=== PATIENT | male | born 1950 | race Caucasian/White ===

== ENCOUNTER 2017-08-16 10:52 | Emergency (ER) | payer MEDICARE ==
[~2017-08-16] VITALS: Ht 177.8 cm; Wt 104.3 kg
[~2017-08-16 10:52] MED LIST: HYDR1TAB PO; NF-ESOM40C PO
--- OUTSIDE RECORDS SUMMARY | 2017-08-16 10:59 | XMS REPORT ---
Author Author ROSIO MCCORMICK Organization [employer] Address Unknown Phone Unavailable Care Team Providers Care Telephone Operators Supervisor Name Role Phone ROSIO MCCORMICK CP Unavailable Allergies, Adverse Reactions, Alerts Substance Reaction Event Type N.K.D.A. Info Not Available Non Drug Allergy Problems Problem Type Condition Code Onset Dates Condition Status Problem Tobacco abuse Z72.0 Active Problem History of esophageal stricture Z87.19 Active Problem Bronchitis J40 Active Problem Gastroesophageal reflux disease with esophagitis K21.0 Active Assessment Abdominal pain, left lower quadrant R10.32 Active Medications Medication Code System Code Instructions Start Date End Date Status Dosage Cipro [facility] [address]-48 500 MG Orally every 12 hrs Apr 18, 2016 Apr 28, 2016 1 tablet Aspir-81 [facility] [address]-88 81 MG Orally Once a day 1 tablet Metronidazole [facility] [address]-66 500 MG Orally every 8 hrs Apr 18, 2016 Apr 28, 2016 1 tablet Procedures Procedure Coding System Code Date VENIPUNCT, ROUTINE* CPT-4 56146 Apr 18, 2016 Office Visit, Est Pt., Level 3 CPT-4 77014 Apr 18, 2016 [facility] NOBLL Apr 18, 2016 Vital Signs Date/Time: Apr 18, 2016 Cardiac Monitoring Heart Rate 88 bpm Weight 233.2 lbs Height 70 in BMI 33.46 Index Blood Pressure Diastolic 80 mmHg Blood Pressure Systolic 150 mmHg Results No Known Results Summary Purpose [employer]ClinicalWorks Submission
--- OUTSIDE RECORDS SUMMARY | 2017-08-16 10:59 | XMS REPORT ---
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 Info Not Available Non Drug Allergy Problems Problem Type Condition Code Onset Dates Condition Status Assessment Gastroesophageal reflux disease with esophagitis K21.0 Active Assessment Tobacco abuse Z72.0 Active Assessment History of esophageal stricture Z87.19 Active Problem Tobacco abuse Z72.0 Active Problem History of esophageal stricture Z87.19 Active Problem Bronchitis J40 Active Assessment SOB (shortness of breath) R06.02 Active Assessment Coughing up blood R04.2 Active Problem Gastroesophageal reflux disease with esophagitis K21.0 Active Assessment Bronchitis J40 Active Medications Medication Code System Code Instructions Start Date End Date Status Dosage Aspir-81 [facility] [address]-29 81 MG Orally Once a day [address] [facility] [address]-26 40 MG Orally Once a day [address] [facility] [address]-02 250 MG Orally Once a day Jul 21, 2015 Jul 26, 2015 2 tablets on the first day, then 1 tablet daily for 4 days Procedures Procedure Coding System Code Date CHEST X-RAY CPT-4 51655 Jul 21, 2015 [facility] VISIT NEW PATIENT CPT-4 G0466 Jul 21, 2015 MEASURE BLOOD OXYGEN LEVEL CPT-4 13924 Jul 21, 2015 Office Visit, New Pt., Level 3 CPT-4 49660 Jul 21, 2015 Vital Signs Date/Time: Jul 21, 2015 Temperature 98.1 F Weight 230 lbs Height 70 in BMI 33.00 Index Oximetry 96 % Cardiac Monitoring Heart Rate 67 bpm Results No Known Results Summary Purpose eClinicalWorks Submission
--- OUTSIDE RECORDS SUMMARY | 2017-08-16 11:00 | XMS REPORT | Continuity of Care Document ---
Author Author [facility] Organization [facility] Address Unknown Phone Unavailable Allergies Active Description Code Type Severity Reaction Onset Reported/Identified Relationship to Patient Clinical Status Yes No Known Drug Allergies [id number] Drug Allergy Unknown N/ A 03/11/2011 Medications 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/2014 DONATO REAL TRAINS DISPATCHER 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 Ot 935.1 04/02/2014 DONATO REAL TRAINS DISPATCHER SUPERVISOR Ot E000.8 04/02/2014 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 TRAINS DISPATCHER SUPERVISOR Ot E915 01/07/2015 CHRIS BLANCHARD DO Ot 530.10 01/07/2015 CHRIS BLANCHARD DO Ot 530.3 01/07/2015 CHRIS BLANCHARD DO Ot 530.9 01/11/2015 Ot 813.42 01/11/2015 Ot E000.8 01/11/2015 Ot E029.9 01/11/2015 Ot E849.8 01/11/2015 Ot E884.9 01/11/2015 Ot V72.83 01/11/2015 Ot V74.8 01/11/2015 CHRIS BLANCHARD DO Ot 553.3 01/11/2015 CHRIS BLANCHARD DO Ot 787.23 01/11/2015 CHRIS BLANCHARD DO Ot V72.84 01/14/2015 Ot 813.42 01/14/2015 Ot E000.8 01/14/2015 Ot E029.9 01/14/2015 Ot E849.8 01/14/2015 Ot E884.9 01/14/2015 Ot V72.83 01/14/2015 Ot V74.8 01/14/2015 BLANCHARD DO, CHRIS D Ot 553.3 01/14/2015 BLANCHARD DO, CHRIS D Ot 787.23 01/14/2015 BLANCHARD DO, CHRIS D Ot V72.84 01/14/2015 BLANCHARD DO, CHRIS D Ot 553.3 01/14/2015 BLANCHARD DO, CHRIS D Ot 787.23 02/05/2015 BLANCHARD DO, CHRIS D Ot 553.3 02/05/2015 BLANCHARD DO, CHRIS D Ot 787.23 02/09/2015 BLANCHARD DO, CHRIS D Ot 553.3 02/09/2015 BLANCHARD DO, CHRIS D Ot 787.23 02/16/2015 BLANCHARD DO, CHRIS D Ot 553.3 02/16/2015 BLANCHARD DO, CHRIS D Ot 787.23 Procedures Results Encounters ACCT No. Visit Date/Time Discharge Status Pt. Type Provider Facility Loc./Unit Complaint [id number] 01/07/2015 11:53:00 2014 15:45:00 DIS Outpatient CHRIS BLANCHARD DO D [facility] [id number] 01/06/2015 05:53:00 2014 23:59:59 CLS Outpatient CHRIS BLANCHARD DO D [facility] PREOP [id number] 12/08/2014 07:35:00 2014 23:59:59 CLS Outpatient BLANCHARD DOCHRIS D [facility] RAD [id number] 04/02/2014 17:00:00 2013 18:05:00 DIS Emergency DONATO REAL APRN [facility] ER [id number] 03/15/2011 05:37:00 Document Registration [id number] 03/13/2011 14:04:00 Document Registration [id number] 03/11/2011 13:36:00 Document Registration
--- OUTSIDE RECORDS SUMMARY | 2017-08-16 11:00 | XMS REPORT ---
Author Author SAMIR ESTRADA [facility] eClinicalWorks Address Unknown Phone Unavailable Care Team Providers Care Rn Utilization Management Um Name Role Phone SAMIR ESTRADA CP Unavailable Allergies, Adverse Reactions, Alerts Substance Reaction Event Type N.K.D.A. Info Not Available Non Drug Allergy Problems Problem Type Condition Code Onset Dates Condition Status Assessment Routine adult health maintenance Z00.00 Active Problem Bronchitis J40 Active Problem Tobacco abuse Z72.0 Active Problem Family history of heart disease Z82.49 Active Assessment Gastroesophageal reflux disease with esophagitis K21.0 Active Assessment Family history of heart disease Z82.49 Active Problem History of esophageal stricture Z87.19 Active Problem Gastroesophageal reflux disease with esophagitis K21.0 Active Medications Medication Code System Code Instructions Start Date End Date Status Dosage Metronidazole [facility] [address]-15 500 MG Orally every 8 hrs Apr 18, 2016 Apr 28, 2016 1 tablet Cipro [facility] [address]-02 500 MG Orally every 12 hrs Apr 18, 2016 Apr 28, 2016 1 tablet Procedures Procedure Coding System Code Date Office Visit, Est Pt., Level 3 CPT-4 47910 Apr 25, 2016 [facility] VISIT ESTABLISHED PATIENT CPT-4 G0467 Apr 25, 2016 Vital Signs Date/Time: Apr 25, 2016 Cardiac Monitoring Heart Rate 78 bpm Weight 236 lbs Height 70 in BMI 33.86 Index Blood Pressure Diastolic 78 mmHg Blood Pressure Systolic 140 mmHg Results No Known Results Summary Purpose eClinicalWorks Submission
[2017-08-16] MEDS ORDERED: IOHEXOL 350 MG/ML 100 ML (OMNIPAQUE 350) VIAL IV ONE (11:15)
[2017-08-16] MEDS ORDERED: NS 100 ML (IVPB) BAG IV ONE (11:15)
[2017-08-16 11:19] LABS: BASOPHILS # (AUTO) 0.1 10^3/uL (0.0-0.1); BASOPHILS % (AUTO) 1 % (0-10); EOSINOPHILS # (AUTO) 0.3 10^3/uL (0.0-0.3); EOSINOPHILS % (AUTO) 2 % (0-10); LYMPHOCYTES # (AUTO) 5.2 X 10^3 (1.0-4.0); LYMPHOCYTES % (AUTO) 50 % (12-44); MEAN CORPUSCULAR HEMOGLOBIN 33 PG (25-34); MEAN CORPUSCULAR HGB CONC 36 G/DL (32-36); MEAN CORPUSCULAR VOLUME 91 FL (80-99); MEAN PLATELET VOLUME 10.8 FL (7.4-10.4); MONOCYTES # (AUTO) 0.7 X 10^3 (0.0-1.0); MONOCYTES % (AUTO) 7 % (0-12); NEUTROPHILS # (AUTO) 4.1 X 10^3 (1.8-7.8); NEUTROPHILS % (AUTO) 40 % (42-75); PLATELET COUNT 241 10^3/uL (130-400); RED BLOOD COUNT 4.95 10^6/uL (4.35-5.85); RED CELL DISTRIBUTION WIDTH 12.7 % (10.0-14.5); WHITE BLOOD COUNT 10.3 10^3/uL (4.3-11.0)
--- NOTE | 2017-08-16 11:19 | ED Trauma-Multisystem ---
General Stated Complaint: RT SHOULDER PAIN-FELL FROM TREE Source of Information: Patient Exam Limitations: No Limitations History of Present Illness Time Seen by Provider: 11:05 Initial Comments The patient presents to the emergency room reporting having fallen from a tree. He complains of right shoulder pain and to a lesser degree right sided pain. He walked into the emergency room. He would estimate the height of the fall 20 feet. There was no loss of consciousness. Occurred: Just Prior to Arrival Pain/Injury Location: Chest, Upper Extremity (right shoulder) Method of Injury: Fall Allergies and Home Medications Allergies Coded Allergies: No Known Drug Allergies (Unverified , 03/11/11) Constitutional: see HPI Eyes: No Symptoms Reported Ears: Other (deaf) Nose: No Symptoms Reported Mouth: No Symptoms Reported Throat: No Symptoms to Report Respiratory: no symptoms reported Cardiovascular: No Symptoms Reported Gastrointestinal: no symptoms reported Genitourinary: no symptoms reported Musculoskeletal: back pain, joint pain (right shoulder), neck pain Skin: no symptoms reported Psychiatric/Neurological: No Symptoms Reported Past Aiwpwbr-Fdrmbx-Fxvvlo Hx Reproductive System Hx Reproductive Disorders: No Sexually Transmitted Disease: No Physical Exam General Appearance: Moderate Distress Head: No Evidence of Injury Eyes: Bilateral Eye Normal Inspection Ears, Nose, Throat: Decreased Hearing Neck: Normal Inspection Cardiovascular: Regular Rate, Rhythm, No Edema, No Gallop, No JVD, No Murmur, Normal Peripheral Pulses Respiratory: Other (chest tender to compression but no ecchymoses are noted) Gastrointestinal: Normal Bowel Sounds, No Organomegaly, No Pulsatile Mass, Non Tender, Soft Back: Normal Inspection Extremity: Normal Capillary Refill, Normal Inspection, Normal Range of Motion, Non Tender, No Calf Tenderness, No Pedal Edema Neurologic/Psychiatric: Alert, Oriented x3, No Motor/Sensory Deficits, Normal Mood/Affect Skin: Normal Color, Warm/Dry Lymphatic: No Adenopathy [place] Coma Score Best Eye Response (Leisa): (4) Open Spontaneously Best Verbal Response ([place]): (5) Oriented Best Motor Response ([place]isa): (6) Obeys Commands Progress/Results/Core Measures Results/Orders Lab Results Laboratory Tests Test 08/16/17 11:14 Range/Units White Blood Count 10.3 4.3-11.0 10^3/uL Red Blood Count 4.95 4.35-5.85 10^6/uL Hemoglobin 16.1 13.3-17.7 G/DL Hematocrit 45 40-54 % Mean Corpuscular Volume 91 80-99 FL Mean Corpuscular Hemoglobin 33 25-34 PG Mean Corpuscular Hemoglobin Concent 36 32-36 G/DL Red Cell Distribution Width 12.7 10.0-14.5 % Platelet Count 241 130-400 10^3/uL Mean Platelet Volume 10.8 H 7.4-10.4 FL Neutrophils (%) (Auto) 40 L 42-75 % Lymphocytes (%) (Auto) 50 H 12-44 % Monocytes (%) (Auto) 7 0-12 % Eosinophils (%) (Auto) 2 0-10 % Basophils (%) (Auto) 1 0-10 % Neutrophils # (Auto) 4.1 1.8-7.8 X 10^3 Lymphocytes # (Auto) 5.2 H 1.0-4.0 X 10^3 Monocytes # (Auto) 0.7 0.0-1.0 X 10^3 Eosinophils # (Auto) 0.3 0.0-0.3 10^3/uL Basophils # (Auto) 0.1 0.0-0.1 10^3/uL Sodium Level 138 135-145 MMOL/L Potassium Level 3.5 L 3.6-5.0 MMOL/L Chloride Level 105 98-107 MMOL/L Carbon Dioxide Level 21 21-32 MMOL/L Anion Gap 12 5-14 MMOL/L Blood Urea Nitrogen 9 7-18 MG/DL Creatinine 0.96 0.60-1.30 MG/DL Estimat Glomerular Filtration Rate > 60 BUN/Creatinine Ratio 9 Glucose Level 144 H 70-105 MG/DL Calcium Level 9.0 8.5-10.1 MG/DL Total Bilirubin 0.8 0.1-1.0 MG/DL Aspartate Amino Transf (AST/SGOT) 31 5-34 U/L Alanine Aminotransferase (ALT/SGPT) 28 0-55 U/L Alkaline Phosphatase 57 40-136 U/L Total Protein 7.2 6.4-8.2 GM/DL Albumin 3.9 3.2-4.5 GM/DL My Orders Orders - NAEEM MIN MD Chest 1 View, Ap/Pa Only (08/16/17 10:56) Cbc With Automated Diff (08/16/17 10:56) Comprehensive Metabolic Panel (08/16/17 10:56) Ua Culture If Indicated (08/16/17 10:56) Iohexol Injection (Omnipaque 350 Mg/Ml 1 (08/16/17 11:15) Ns (Ivpb) (Sodium Chloride 0.9% Ivpb Bag (08/16/17 11:15) Pharmacy Communication (Pharmacy Communi (08/16/17 11:14) Ondansetron Injection (Zofran Injectio (08/16/17 11:32) Hydrocodone/Apap 10/325 Tablet (Lortab 1 (08/16/17 11:58) Medications Given in ED Current Medications Medications Dose Ordered Sig/Ki Route Start Time Stop Time Status Last Admin Dose Admin Iohexol 100 ml ONCE ONCE IV 08/16/17 11:15 08/16/17 11:17 DC 08/16/17 11:20 100 ML Ondansetron HCl 4 mg STK-MED ONCE .ROUTE 08/16/17 11:32 08/16/17 11:42 DC 08/16/17 11:44 8 MG Sodium Chloride 100 ml ONCE ONCE IV 08/16/17 11:15 08/16/17 11:17 DC 08/16/17 11:20 80 ML Departure Communication (Admissions) Progress Notes X-ray was returned negative for fracture or dislocation. C-collar removed 1155. Patient was also examined by Dr. Drew the trauma surgeon of the day. Impression Impression: Primary Impression: Fall from height of greater than 3 feet Additional Impression: multiple contusions Disposition: HOME, SELF-CARE Condition: Stable/Unchanged Departure-Patient Inst. Decision time for Depature: 12:01 Referrals: NO,LOCAL PHYSICIAN (PCP) Primary Care Physician Add. Discharge Instructions: Rest. Ice packs to areas of greatest discomfort. Pain meds as required for pain relief. Scripts Hydrocodone/Acetaminophen ([place] 7.5-325 Tablet) 1 Each Tablet 1 EACH PO every 4 hours, #20 TAB Prov: NAEEM MIN MD 08/16/17 NAEEM MIN MD Aug 16, 2017 11:19
--- NOTE | 2017-08-16 11:26 | Diagnostic Imaging Report ---
AP view of the pelvis. INDICATION: Injury. FINDINGS: No fracture, dislocation, or radiopaque foreign body seen. IMPRESSION: No fracture seen. Dictated by: Dictated on workstation # [id number]
--- NOTE | 2017-08-16 11:27 | Diagnostic Imaging Report ---
Supine portable AP view of the chest. INDICATION: Fall. The heart size is mildly enlarged. No definite focal infiltrate. No effusion or pneumothorax. The mediastinum and kevin appear unremarkable. IMPRESSION: Cardiomegaly. Dictated by: Dictated on workstation # [id number]
[2017-08-16] MEDS ORDERED: ONDANSETRON 4 MG/2 ML (SDV) Z0FRAN ONE (11:32)
[2017-08-16 11:37] LABS: ALANINE AMINOTRANSFERASE 28 U/L (0-55); ALBUMIN 3.9 GM/DL (3.2-4.5); ANION GAP 12 MMOL/L (5-14); ASPARTATE AMINO TRANSFERASE 31 U/L (5-34); BILIRUBIN,TOTAL 0.8 MG/DL (0.1-1.0); BLOOD UREA NITROGEN 9 MG/DL (7-18); BUN/CREATININE RATIO 9; CARBON DIOXIDE 21 MMOL/L (21-32); CHLORIDE 105 MMOL/L (98-107); CREATININE SERUM 0.96 MG/DL (0.60-1.30); GFR ESTIMATED > 60; GLUCOSE 144 MG/DL (70-105); POTASSIUM 3.5 MMOL/L (3.6-5.0); SODIUM 138 MMOL/L (135-145); TOTAL PROTEIN 7.2 GM/DL (6.4-8.2)
--- NOTE | 2017-08-16 11:45 | Diagnostic Imaging Report ---
PROCEDURE: CT head and CT cervical spine without contrast. TECHNIQUE: Multiple contiguous axial images were obtained through the brain and cervical spine without the use of intravenous contrast. Sagittal and coronal reformations through the cervical spine were then performed. INDICATION: Trauma, fall. FINDINGS: CT head: There is no intracranial hemorrhage, edema, or mass effect. The brain parenchyma demonstrates mild periventricular hypodensities compatible with chronic microvascular ischemic changes. No hydrocephalus. No extra-axial fluid collection is seen. The calvarium, and orbits appear grossly unremarkable. There is a nonspecific partial opacification of the ethmoid air cells seen. The rest of the paranasal sinuses appear grossly unremarkable. CT cervical spine: There is old anterior and posterior fusion hardware seen with fusion wires seen through the posterior elements involving levels C4 through T1 with posterior and anterior osseous fusion seen. The fusion material including an area of graft or prosthesis suggested that has pockets of air unchanged from 2014 exam. The alignment of the posterior spinal line is satisfactory. Small posterior osteophytes at C2-C3 and C3-C4 are seen. There is minimal rotation of C1 over C2 without widening of the predental space, likely positional. No fracture is seen. IMPRESSION: CT head: No intracranial hemorrhage. CT cervical spine: Chronic changes related to fusion surgery with osseous fusion of the vertebral bodies and facet joints from C4 to T1 levels. Slight rotation of C1 over C2 is perhaps positional with no fracture seen. Dictated by: Dictated on workstation # [id number]
--- NOTE | 2017-08-16 11:49 | Consultation ---
History of Present Illness History of Present Illness Patient Consulted On(geena/time) 08/16/17 11:44 Date Seen by Provider: Aug 16, 2017 Time Seen by Provider: 11:03 History of Present Illness Type I Trauma activation; pt was hunting and reports falling 20 feet out of tree stand. Pt walked into the ED complaining of right shoulder, right sided pain and right hip pain. He denies LOC. Rates the pain as 8 out of 10 on a 1-10 scale. States any movement makes the pain worse and nothing seems to make it better. Did get some relief with pain meds. Pt reports some nausea, no vomiting. Has a history of neck surgery and denies neck pain at this time. Denies abdominal pain. Allergies and Home Medications Allergies Coded Allergies: No Known Drug Allergies (Unverified , 03/11/11) Past Ytooiux-Gyrsyk-Sqiobs Hx Patient Social History Alcohol Use: Occasionally Uses Recreational Drug Use: No Smoking Status: Former Smoker (quit when he was 34) Recent Foreign Travel: No Contact w/Someone Who Travel: No Recent Infectious Disease Expo: No Recent Hopitalizations: No Immunizations Up To Date Tetanus Booster (TDap): Unknown Seasonal Allergies Seasonal Allergies: No Surgeries Surgeries: Orthopedic (neck, back and left wrist) Respiratory History of Respiratory Disorde: No Cardiovascular History of Cardiac Disorders: No Neurological History of Neurological Disord: No Reproductive System Hx Reproductive Disorders: No Sexually Transmitted Disease: No Genitourinary History of Genitourinary Disor: No Gastrointestinal History of Gastrointestinal Di: No Musculoskeletal History of Musculoskeletal Dis: No Endocrine History of Endocrine Disorders: No HEENT Hearing Impairment: Denies Cancer History of Cancer: No Psychosocial History of Psychiatric Problem: No Integumentary History of Skin or Integumenta: No Blood Transfusions History of Blood Disorders: No Family Medical History Significant Family History: Diabetes (Pt denies either parent had DM), Other Conditions/Hx (Pt denies either parent had HTN, no strokes) Review of Systems-General Constitutional: No chills, No diaphoresis, No dizziness EENTM: No blurred vision, No mouth swelling, No epistaxis, No throat swelling Respiratory: No cough, No dyspnea on exertion Cardiovascular: No chest pain, No edema, No Hx of Intervention Gastrointestinal: No abdominal pain, No constipation, No diarrhea, No hematemesis, No jaundice Genitourinary: No dysuria, frequency, No hematuria, hesitancy Musculoskeletal: back pain, joint pain, joint swelling, muscle pain, muscle stiffness, muscle cramps Skin: No change in color, No change in hair/nails Psychiatric/Neurological: Denies Anxiety, Denies Depressed, Denies Headache, Denies Paresthesia, Denies Seizure Other pt denies any abnormal bruising or bleeding. No chronic illnesses Physical Exam-General Problems Physical Exam Vital Signs Capillary Refill : General Appearance: WD/WN, moderate distress Eyes: Bilateral Eye PERRL, Bilateral Eye EOMI HEENT: pharynx normal, No scleral icterus (R), No scleral icterus (L), No pale conjunctivae (R), No pale conjunctivae (L) Neck: non-tender, supple, No normal inspection, No thyromegaly Respiratory: lungs clear, normal breath sounds, no respiratory distress, no accessory muscle use, other (chest tender on right) Cardiovascular: regular rate, rhythm, no edema, no murmur Gastrointestinal: normal bowel sounds, soft, no organomegaly, tenderness ( diffusely), hernia (small umbilical) Rectal: deferred Back: no CVA tenderness, no vertebral tenderness Extremities: no pedal edema, no calf tenderness, normal capillary refill, other (complains of right shoulder pain, doesn't really want to move it) 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, no motor/sensory deficits, alert, normal mood/affect, oriented x 3 Skin: normal color, warm/dry Lymphatic: no adenopathy (neck, axilla or groin) Data Review Labs Laboratory Tests 08/16/17 11:14: White Blood Count 10.3, Red Blood Count 4.95, Hemoglobin 16.1, Hematocrit 45, Mean Corpuscular Volume 91, Mean Corpuscular Hemoglobin 33, Mean Corpuscular Hemoglobin Concent 36, Red Cell Distribution Width 12.7, Platelet Count 241, Mean Platelet Volume 10.8H, Neutrophils (%) (Auto) 40L, Lymphocytes (%) (Auto) 50H, Monocytes (%) (Auto) 7, Eosinophils (%) (Auto) 2, Basophils (%) (Auto) 1, Neutrophils # (Auto) 4.1, Lymphocytes # (Auto) 5.2H, Monocytes # (Auto) 0.7, Eosinophils # (Auto) 0.3, Basophils # (Auto) 0.1, Sodium Level 138, Potassium Level 3.5L, Chloride Level 105, Carbon Dioxide Level 21, Anion Gap 12, Blood Urea Nitrogen 9, Creatinine 0.96, Estimat Glomerular Filtration Rate > 60, BUN/ Creatinine Ratio 9, Glucose Level 144H, Calcium Level 9.0, Total Bilirubin 0.8, Aspartate Amino Transf (AST/SGOT) 31, Alanine Aminotransferase (ALT/SGPT) 28, Alkaline Phosphatase 57, Total Protein 7.2, Albumin 3.9 Assessment/Plan Assessment/Plan Assessment/Plan Type I Trauma Activation; 20 foot fall Right Shoulder Pain Right hip pain Fortunately for pt it is looking like there is nothing broken. Will await final radiologist reading. Pt will be sore for a while, should use ice and heat ; add in NSAIDS. He can try hot tub as well. Will need to make sure he is taking deep breaths and moving around; can't lay on couch for next 2 weeks. Unfortunately there is not much we can do for the pain. Follow up with primary care doctor. JE WOODALL DO Aug 16, 2017 11:49
[2017-08-16] MEDS ORDERED: HYDROcodone/APAP 10 MG/325 MG (LORTAB) TAB PO ONE (11:58)
--- NOTE | 2017-08-16 12:00 | Diagnostic Imaging Report ---
PROCEDURE: CT chest, abdomen, and pelvis with contrast. TECHNIQUE: Multiple contiguous axial images were obtained through the chest, abdomen, and pelvis after the administration of intravenous contrast. INDICATION: Fall. FINDINGS: CT chest: The lungs demonstrate no significant consolidation, contusion, or mass. There is minimal atelectasis in the lung bases. Calcified granuloma in the left perihilar region measuring 3 mm is seen. Minimal emphysema changes in the lung apices are noted. There is no pleural or pericardial effusion or hemorrhage. There is fluid density mildly distending the mid/ distal esophagus. This may relate to gastroesophageal reflux. The thoracic aorta is normal in caliber and contour. No contrast extravasation or hemorrhage in the mediastinum is seen. No mediastinal, or axillary, or hilar lymphadenopathy seen. The osseous structures appear grossly unremarkable. CT abdomen and pelvis: The liver demonstrates a 0.8-cm hypodense lesion in the inferior aspect of the right hepatic lobe, likely a cyst. Cholecystectomy clips are seen. The spleen, the pancreas, and the adrenal glands demonstrate no evidence of hemorrhage. No peritoneal or retroperitoneal hemorrhage seen. The abdominal aorta is normal in caliber. The kidneys have symmetric enhancement and contrast excretion. There are multiple cysts seen in the right kidney up to 2.1 cm in size. There is a tiny fat-containing umbilical hernia. The appendix is normal. There is multiple colonic diverticulosis. No diverticulitis. The urinary bladder appears unremarkable. The prostate is at the upper limits of normal in size at 4.7 cm in transverse dimension. The osseous structures demonstrate mild degenerative changes in the lumbar spine. There is also osseous fusion of the SI joints. IMPRESSION: CT chest: Fluid distention of the mid and distal segments of the esophagus probably related to gastroesophageal reflux. No significant injury is evident. CT abdomen and pelvis: 1. No solid organ injury or hematoma is seen. 2. Tiny fat-containing umbilical hernia. 3. Diverticulosis. No evidence of diverticulitis. Dictated by: Dictated on workstation # [id number]
[2017-08-16] MEDS ORDERED: HYDR-756 PO (12:13)
[2017-08-16 12:43] VITALS: BP 157/85
== END 2017-08-16 12:43 | disposition home or self-care (01) ==
LOC: EDUNIT# 10:52 → ER 10:55
DX: S40.011A Contusion of right shoulder, initial encounter (principal); W14.XXXA Fall from tree, initial encounter
CPT/HCPCS: 36415; 70450; 71010; 71260; 72125; 72170; 74177; 80053; 85025; 94664

== ENCOUNTER 2019-04-16 21:04 | Emergency (ER) | payer MEDICARE ==
[~2019-04-16] VITALS: Ht 177.8 cm; Wt 99.8 kg
[~2019-04-16 21:04] MED LIST changes: +HYDR-4227 PO
--- NOTE | 2019-04-16 21:20 | ED GI ---
General Stated Complaint: CHOKING Source of Information: Patient, EMS Exam Limitations: No Limitations History of Present Illness Date Seen by Provider: Apr 16, 2019 Time Seen by Provider: 21:00 Initial Comments The patient presents by ambulance from home with chief complaint that he was eating some fillet of birch. He says he is not having any pain mild nausea though and feeling of acid reflux. He has a lot of history of acid reflux but does not take anything routinely for it. He also has a history of esophageal strictures status post dilatation by a GI doctor and [place] over 2 years ago. He takes a daily 81 mg aspirin but does not take any other medications and denies any other significant medical history. Allergies and Home Medications Allergies Coded Allergies: No Known Drug Allergies (Unverified , 03/11/11) Home Medications Hydrocodone/Acetaminophen 1 Each Tablet, 1 EACH PO every 4 hours Prescribed by: NAEEM MIN on 08/16/17 1213 Patient Home Medication List Home Medication List Reviewed: Yes Review of Systems Review of Systems Constitutional: No chills, No fever, No malaise EENTM: No Blurred Vision, No Double Vision Respiratory: Denies Cough, Denies Orthopnea Cardiovascular: Denies Chest Pain, Denies Edema Gastrointestinal: Denies Abdomen Distended, Denies Abdominal Pain Genitourinary: Denies Burning, Denies Discharge Musculoskeletal: No back pain, No joint pain Past Jarwvgk-Meujig-Xduacu Hx Patient Social History Alcohol Use: Denies Use Recreational Drug Use: No Smoking Status: Never a Smoker Recent Foreign Travel: No Contact w/Someone Who Travel: No Recent Hopitalizations: No Immunizations Up To Date Tetanus Booster (TDap): Unknown Seasonal Allergies Seasonal Allergies: No Past Medical History Surgeries: Yes (EDG, HX BROKEN NECK, ARM, LEG) Orthopedic Respiratory: No Cardiac: No Neurological: No Reproductive Disorders: No Sexually Transmitted Disease: No Genitourinary: No Gastrointestinal: No Musculoskeletal: No Endocrine: No Hearing Impairment: Denies Cancer: No Psychosocial: No Integumentary: No Blood Disorders: No Family Medical History Diabetes, Other Conditions/Hx Physical Exam Vital Signs Vital Signs - First Documented 04/16/19 21:06 Pulse 89 Resp 18 B/P (MAP) 151/105 (120) Capillary Refill : Height/Weight/BMI Height: 5'10.00" Weight: 230lbs. 0.0oz. 104.052690cr; 28.12 BMI Method:Stated General Appearance: WD/WN, mild distress (Spitting but not coughing. No active emesis) HEENT: PERRL/EOMI Neck: full range of motion, normal inspection Respiratory: lungs clear, normal breath sounds, no respiratory distress, no accessory muscle use Cardiovascular: normal peripheral pulses, regular rate, rhythm Gastrointestinal: normal bowel sounds, non tender, soft Extremities: non-tender, no pedal edema Neurologic/Psychiatric: alert, normal mood/affect, oriented x 3 Skin: normal color, warm/dry Progress/Results/Core Measures Results/Orders Vital Signs/I&O 04/16/19 21:06 Pulse 89 Resp 18 B/P (MAP) 151/105 (120) Progress Progress Note #1: Time: 21:25 Progress Note IV Zofran, pantoprazole, basic labs and discuss with surgeon Progress Note #2: Time: 23:18 Progress Note Patient was given an antacid, antinausea medicine and glucagon IV. We discussed with him observation overnight with the surgeon and he agreed to this. However before we can take him upstairs he says the food bolus passed and he would now like to go home. Patient says he's had a endoscopy by Dr. Blanchard in the past and will follow up outpatient with Dr. Blanchard. Consults : Consulting Physician: MARTY MARCANO MD Consults Notes 2115: Discussed case with Dr. Marcano, general surgery and he agrees to admit the patient to him and do glucagon every 6, pantoprazole twice a day, IV maintenance fluids, when necessary pain meds, nausea, Ativan. Plan to take the patient to endoscopy in the morning if his food bolus has not spontaneously resolved. Departure Impression Primary Impression: Foreign body in esophagus Qualified Codes: T18.108A - Unspecified foreign body in esophagus causing other injury, initial encounter Disposition: 01 HOME, SELF-CARE Condition: Improved Departure-Patient Inst. Decision time for Depature: 23:23 Referrals: NO,LOCAL PHYSICIAN (PCP) Primary Care Physician CHRIS BLANCHARD DO Patient Instructions: Foreign Body, Swallowed, Adult (DC) Add. Discharge Instructions: If you begin to have chest pain, shortness of breath, nausea vomiting or difficulty swallowing fluids then please return to the ER. Tomorrow morning call Dr. Blanchard, General Surgery and request an appointment to follow up for EGD with possible esophagitis stretching. Stick to a liquid diet until you seen the surgeon. Copy Copies To 1: CHRIS BLANCHARD TITUS J Apr 16, 2019 21:20
[2019-04-16] MEDS ORDERED: LACTATED RINGERS 1,000 ML IV SCH (21:30)
[2019-04-16] MEDS ORDERED: PANTOPRAZOLE 40 MG (PROTONIX) VIAL IV ONE (21:30)
[2019-04-16] MEDS ORDERED: ONDANSETRON 4 MG/2 ML (SDV) Z0FRAN IVP ONE (21:30)
--- OUTSIDE RECORDS SUMMARY | 2019-04-16 21:30 | XMS REPORT | Continuity of Care Document ---
Author Organization Unknown Address Unknown Phone Unavailable Allergies Active Description Code Type Severity Reaction Onset Reported/Identified Relationship to Patient Clinical Status Yes No Known Drug Allergies [id number] Drug Allergy Unknown N/A 03/11/2011 Medications There is no data. 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 Ot E915 FB ENTERING OTH ORIFICE 01/07/2015 CHRIS BLANCHARD DO Ot 530.10 ESOPHAGITIS NOS 01/07/2015 CHRIS BLANCHARD DO Ot 530.3 ESOPHAGEAL STRICTURE 01/07/2015 CHRIS BLANCHARD DO Ot 530.9 01/11/2015 [...] 02/16/2015 BLANCHARD DO, CHRIS D Ot 787.23 08/16/2017 NAEEM MIN MD Ot M25.511 PAIN IN RIGHT SHOULDER 08/16/2017 NAEEM MIN MD Ot S40.011A CONTUSION OF RIGHT SHOULDER, INITIAL ENC 08/16/2017 NAEEM MIN MD Ot W14.XXXA FALL FROM TREE, INITIAL ENCOUNTER 08/20/2017 NAEEM MIN MD Ot M25.511 PAIN IN RIGHT SHOULDER 08/20/2017 NAEEM MIN MD Ot S40.011A CONTUSION OF RIGHT SHOULDER, INITIAL ENC 08/20/2017 NAEEM MIN MD Ot W14.XXXA FALL FROM TREE, INITIAL ENCOUNTER 12/28/2017 LO DO CHRIS D Ot 553.3 DIAPHRAGMATIC HERNIA 12/28/2017 BLANCHARD DO, CHRIS D Ot 787.23 DYSPHAGIA, PHARYNGEAL PHASE 12/28/2017 BLANCHARD DO, CHRIS D Ot V72.84 EXAM PRE-OPERATIVE NOS Procedures There is no data. Results Test Result Range Complete blood count (CBC) with automated white blood cell (WBC) differential - 08/16/17 11:14 Blood leukocytes automated count (number/volume) 10.3 10*3/uL 4.3-11.0 Blood erythrocytes automated count (number/volume) 4.95 10*6/uL 4.35-5.85 Venous blood hemoglobin measurement (mass/volume) 16.1 g/dL 13.3-17.7 Blood hematocrit (volume fraction) 45 % 40-54 Automated erythrocyte mean corpuscular volume 91 [foz_us] 80-99 Automated erythrocyte mean corpuscular hemoglobin (mass per erythrocyte) 33 pg 25-34 Automated erythrocyte mean corpuscular hemoglobin concentration measurement (mass/volume) 36 g/dL 32-36 Automated erythrocyte distribution width ratio 12.7 % 10.0- 14.5 Automated blood platelet count (count/volume) 241 10*3/uL 130-400 Automated blood platelet mean volume measurement 10.8 [foz_us] 7.4-10.4 Automated blood neutrophils/100 leukocytes 40 % 42-75 Automated blood lymphocytes/100 leukocytes 50 % 12-44 Blood monocytes/100 leukocytes 7 % 0-12 Automated blood eosinophils/100 leukocytes 2 % 0-10 Automated blood basophils/100 leukocytes 1 % 0-10 Blood neutrophils automated count (number/volume) 4.1 10*3 1.8-7.8 Blood lymphocytes automated count (number/volume) 5.2 10*3 1.0-4.0 Blood monocytes automated count (number/volume) 0.7 10*3 0.0- 1.0 Automated eosinophil count 0.3 10*3/uL 0.0-0.3 Automated blood basophil count (count/volume) 0.1 10*3/uL 0.0-0.1 Comprehensive metabolic panel - 08/16/17 11:14 Serum or plasma sodium measurement (moles/volume) 138 mmol/L 135-145 Serum or plasma potassium measurement (moles/volume) 3.5 mmol/L 3.6-5.0 Serum or plasma chloride measurement (moles/volume) 105 mmol/L 98-107 Carbon dioxide 21 mmol/L 21-32 Serum or plasma anion gap determination (moles/volume) 12 mmol/L 5-14 Serum or plasma urea nitrogen measurement (mass/volume) 9 mg/dL 7-18 Serum or plasma creatinine measurement (mass/volume) 0.96 mg/dL 0.60-1.30 Serum or plasma urea nitrogen/creatinine mass ratio 9 NRG Serum or plasma creatinine measurement with calculation of estimated glomerular filtration rate > NRG Serum or plasma glucose measurement (mass/volume) 144 mg/dL 70-105 Serum or plasma calcium measurement (mass/volume) 9.0 mg/dL 8.5-10.1 Serum or plasma total bilirubin measurement (mass/volume) 0.8 mg/dL 0.1-1.0 Serum or plasma alkaline phosphatase measurement (enzymatic activity/volume) 57 U/L 40-136 Serum or plasma aspartate aminotransferase measurement (enzymatic activity/volume) 31 U/L 5-34 Serum or plasma alanine aminotransferase measurement (enzymatic activity/volume) 28 U/L 0-55 Serum or plasma protein measurement (mass/volume) 7.2 g/dL 6.4-8.2 Serum or plasma albumin measurement (mass/volume) 3.9 g/dL 3.2-4.5 [id number] - 08/16/17 11:14 [id number] SPECIMEN AVAILABLE NRG Encounters ACCT No. Visit Date/Time Discharge Status Pt. Type Provider Facility Loc./Unit Complaint [id number] 08/16/2017 10:55:00 08/16/2017 12:43:00 DIS Emergency NAEEM MIN MD Via [facility] ER RT SHOULDER PAIN-FELL FROM TREE [id number] 01/07/2015 11:53:00 01/07/2015 15:45:00 DIS Outpatient DONNELLY CHRIS WILD [facility] SDC DYSPHAGIA [id number] 01/06/2015 05:53:00 01/06/2015 23:59:59 CLS Outpatient DONNELLY CHRIS WILD [facility] PREOP DYSPHAGIA [id number] 12/08/2014 07:35:00 12/08/2014 23:59:59 CLS Outpatient DONNELLY CHRIS WILD [facility] RAD PHARYGEAL DSYPHAGIA [id number] 04/02/2014 17:00:00 04/02/2014 18:05:00 DIS Emergency DONATO REAL APRN [facility] ER CHOKING [id number] 04/16/2019 21:06:00 ACT Emergency DANIELA PEREZ MD [facility] ER [place]ING [id number] 03/15/2011 05:37:00 Document Registration [id number] 03/13/2011 14:04:00 Document Registration [id number] 03/11/2011 13:36:00 Document Registration
[2019-04-16] MEDS ORDERED: GLUCAGON EMERGENCY 1 MG/KIT IV ONE (21:45)
[2019-04-16 21:51] LABS: BASOPHILS % (AUTO) 0 % (0-10); EOSINOPHILS # (AUTO) 0.3 10^3/uL (0.0-0.3); EOSINOPHILS % (AUTO) 4 % (0-10); HEMATOCRIT 46 % (40-54); LYMPHOCYTES # (AUTO) 2.5 X 10^3 (1.0-4.0); LYMPHOCYTES % (AUTO) 27 % (12-44); MEAN CORPUSCULAR HEMOGLOBIN 31 PG (25-34); MEAN CORPUSCULAR HGB CONC 35 G/DL (32-36); MEAN CORPUSCULAR VOLUME 90 FL (80-99); MEAN PLATELET VOLUME 10.3 FL (7.4-10.4); MONOCYTES % (AUTO) 10 % (0-12); NEUTROPHILS # (AUTO) 5.6 X 10^3 (1.8-7.8); NEUTROPHILS % (AUTO) 59 % (42-75); PLATELET COUNT 244 10^3/uL (130-400); RED CELL DISTRIBUTION WIDTH 13.2 % (10.0-14.5); WHITE BLOOD COUNT 9.4 10^3/uL (4.3-11.0)
[2019-04-16 22:11] LABS: ALANINE AMINOTRANSFERASE 18 U/L (0-55); ALBUMIN 4.4 GM/DL (3.2-4.5); ALKALINE PHOSPHATASE 57 U/L (40-136); BILIRUBIN,TOTAL 0.7 MG/DL (0.1-1.0); BUN/CREATININE RATIO 11; CALCIUM 9.9 MG/DL (8.5-10.1); CARBON DIOXIDE 24 MMOL/L (21-32); CHLORIDE 105 MMOL/L (98-107); CREATININE SERUM 1.13 MG/DL (0.60-1.30); GFR ESTIMATED > 60; GLUCOSE 94 MG/DL (70-105); POTASSIUM 3.8 MMOL/L (3.6-5.0); SODIUM 141 MMOL/L (135-145); TOTAL PROTEIN 7.5 GM/DL (6.4-8.2)
--- OUTSIDE RECORDS SUMMARY | 2019-04-16 22:28 | XMS REPORT | Continuity of Care Document ---
Author Organization Unknown Address Unknown Phone Unavailable Allergies Active Description Code Type Severity Reaction Onset Reported/Identified Relationship to Patient Clinical Status Yes No Known Drug Allergies [id number] Drug Allergy Unknown N/A 03/11/2011 Medications There is no data. 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 Ot E915 FB ENTERING OTH ORIFICE 01/07/2015 [...] plasma albumin measurement (mass/volume) 3.9 g/dL 3.2-4.5 [id number] - 08/16/17 11:14 [id number] SPECIMEN AVAILABLE [facility] Complete blood count (CBC) with automated white blood cell (WBC) differential - 04/16/19 21:40 Blood leukocytes automated count (number/volume) 9.4 10*3/uL 4.3-11.0 Blood erythrocytes automated count (number/volume) 5.10 10*6/uL 4.35-5.85 Venous blood hemoglobin measurement (mass/volume) 16.0 g/dL 13.3-17.7 Blood hematocrit (volume fraction) 46 % 40-54 Automated erythrocyte mean corpuscular volume 90 [foz_us] 80-99 Automated erythrocyte mean corpuscular hemoglobin (mass per erythrocyte) 31 pg 25-34 Automated erythrocyte mean corpuscular hemoglobin concentration measurement (mass/volume) 35 g/dL 32-36 Automated erythrocyte distribution width ratio 13.2 % 10.0- 14.5 Automated blood platelet count (count/volume) 244 10*3/uL 130-400 Automated blood platelet mean volume measurement 10.3 [foz_us] 7.4-10.4 Automated blood neutrophils/100 leukocytes 59 % 42-75 Automated blood lymphocytes/100 leukocytes 27 % 12-44 Blood monocytes/100 leukocytes 10 % 0-12 Automated blood eosinophils/100 leukocytes 4 % 0-10 Automated blood basophils/100 leukocytes 0 % 0-10 Blood neutrophils automated count (number/volume) 5.6 10*3 1.8-7.8 Blood lymphocytes automated count (number/volume) 2.5 10*3 1.0-4.0 Blood monocytes automated count (number/volume) 1.0 10*3 0.0- 1.0 Automated eosinophil count 0.3 10*3/uL 0.0-0.3 Automated blood basophil count (count/volume) 0.0 10*3/uL 0.0-0.1 Comprehensive metabolic panel - 04/16/19 21:40 Serum or plasma sodium measurement (moles/volume) 141 mmol/L 135-145 Serum or plasma potassium measurement (moles/volume) 3.8 mmol/L 3.6-5.0 Serum or plasma chloride measurement (moles/volume) 105 mmol/L 98-107 Carbon dioxide 24 mmol/L 21-32 Serum or plasma anion gap determination (moles/volume) 12 mmol/L 5-14 Serum or plasma urea nitrogen measurement (mass/volume) 12 mg/dL 7-18 Serum or plasma creatinine measurement (mass/volume) 1.13 mg/dL 0.60-1.30 Serum or plasma urea nitrogen/creatinine mass ratio 11 NRG Serum or plasma creatinine measurement with calculation of estimated glomerular filtration rate > NRG Serum or plasma glucose measurement (mass/volume) 94 mg/dL 70-105 Serum or plasma calcium measurement (mass/volume) 9.9 mg/dL 8.5-10.1 Serum or plasma total bilirubin measurement (mass/volume) 0.7 mg/dL 0.1-1.0 Serum or plasma alkaline phosphatase measurement (enzymatic activity/volume) 57 U/L 40-136 Serum or plasma aspartate aminotransferase measurement (enzymatic activity/volume) 20 U/L 5-34 Serum or plasma alanine aminotransferase measurement (enzymatic activity/volume) 18 U/L 0-55 Serum or plasma protein measurement (mass/volume) 7.5 g/dL 6.4-8.2 Serum or plasma albumin measurement (mass/volume) 4.4 g/dL 3.2-4.5 CALCIUM CORRECTED 9.6 mg/dL 8.5-10.1 Encounters ACCT No. Visit Date/Time Discharge Status Pt. Type Provider Facility Loc./Unit Complaint [id number] 08/16/2017 10:55:00 08/16/2017 12:43:00 DIS Emergency MECHELLE PURVIS, NAEEM Matthews [facility] ER RT SHOULDER PAIN-FELL FROM TREE [id number] 01/07/2015 11:53:00 01/07/2015 15:45:00 DIS Outpatient CHRIS BLANCHARD DO [facility] SDC DYSPHAGIA [id number] 01/06/2015 05:53:00 01/06/2015 23:59:59 CLS Outpatient BLANCHARD CHRIS WILD [facility] PREOP DYSPHAGIA [id number] 12/08/2014 07:35:00 12/08/2014 23:59:59 CLS Outpatient BLANCHARD CHRIS WILD [facility] RAD PHARYGEAL DSYPHAGIA [id number] 04/02/2014 17:00:00 04/02/2014 18:05:00 DIS Emergency DONATO REAL APRN [facility] ER [place]ING [id number] 04/16/2019 21:15:00 ACT Inpatient MARTY CASILLAS MD [facility] 4TH FOOD BOLUS [id number] 03/15/2011 05:37:00 Document Registration [id number] 03/13/2011 14:04:00 Document Registration [id number] 03/11/2011 13:36:00 Document Registration
--- NOTE | 2019-04-16 23:00 | NUR ---
PT STATES "I PASSED IT" SPEAKING OF FOOD BOLUS HE FELT WAS CAUGHT IN THROAT. DR. PEREZ NOTIFIED.
[2019-04-16 23:29] VITALS: BP 145/99
--- NOTE | 2019-04-16 23:29 | NUR ---
DR. PEREZ ASSESSED PT AND PT WISHES TO DC TO HOME. INSTRUCTIONS GIVEN TO CALL 911 OR RETURN TO ER IF DEVELOPS CP, SOA, N/V, OR WORSENING IN CONDITION. PT VERBALIZED UNDERSTANDING.
== END 2019-04-16 23:30 | disposition home or self-care (01) ==
LOC: EDUNIT# 21:04 → ER 21:06 → UNDOADMOB 21:15 → 4TH 21:15
DX: T18.128A Food in esophagus causing other injury, initial encounter (principal); K21.9 Gastro-esophageal reflux disease without esophagitis; Z79.82 Long term (current) use of aspirin
CPT/HCPCS: 36415; 80053; 85025; 96361; 96374; 96375

== ENCOUNTER → 2020-02-06 | Outpatient (CLI) | payer MEDICAID, MEDICARE ==
[~2020-02-06] VITALS: Ht 180 cm; Wt 102.0 kg
[~2020-02-06] MED LIST changes: +CATHETER FLUSH 10 ML SYR IV PRN; +REGADENOSON 0.4 MG/5 ML SYR (LEXISCAN) IV ONE
[2020-02-06 09:02] VITALS: BP 164/72
--- NOTE | 2020-02-06 17:30 | STRESS TEST ---
DATE OF SERVICE: 02/06/2020 RESTING AND POST REGADENOSON TECHNETIUM-99M TETROFOSMIN SPECT CT IMAGING PRIMARY PHYSICIAN: Dr. Howard. CLINICAL DIAGNOSIS: Chest discomfort, hypertension. Baseline images were carried out after injection of 10.82 mCi of technetium-99m Tetrofosmin. This was followed by 0.4 mg regadenoson and 29.7 mCi of technetium-99m Tetrofosmin for stress imaging. The electrocardiogram showed sinus rhythm at baseline. It did not change significantly with regadenoson infusion. Review of images at rest and following stress does not indicate any distinct perfusion defects consistent with significant myocardial ischemia or infarction. Gated images show normal global left ventricular systolic function with normal regional wall motion. Left ventricular ejection fraction is calculated to be 60%. Left ventricular end diastolic volume is 78 mL. TID is absent (1.05). CONCLUSIONS: 1. No evidence of any significant myocardial ischemia or infarction on this study. 2. Normal regional wall motion. 3. Normal global left ventricular systolic function with a calculated ejection fraction of 60%. Job ID: [id number] DocumentID: [id number] Dictated Date: 02/06/2020 15:18:30 Fire Fighting Equipment Specialist Date: 02/06/2020 17:29:54 Dictated By: JULIETA HOWARD MD, MA, FACP, FACC,
== END ==
LOC: CARD 07:14
PROVIDERS: ATTEND Internal Medicine Cardiovascular Disease
DX: R07.89 Other chest pain (principal); I10 Essential (primary) hypertension
CPT/HCPCS: 78452; 93017

== ENCOUNTER 2022-01-12 05:43 | Outpatient (CLI) | payer MEDICARE, MEDICAID ==
[~2022-01-12] VITALS: Ht 177.8 cm; Wt 105.7 kg
[~2022-01-12 05:43] MED LIST changes: -CATHETER FLUSH 10 ML SYR IV PRN; -REGADENOSON 0.4 MG/5 ML SYR (LEXISCAN) IV ONE
[2022-01-12] MEDS ORDERED: FAMO20TA3 PO ×2 (10:20)
[2022-01-12] MEDS ORDERED: METO50TA15 PO ×2 (10:20)
[2022-01-12] MEDS ORDERED: ASPI-1238 PO ×2 (10:20)
[2022-01-12] MEDS ORDERED: ATOR20TA66 PO ×2 (10:20)
[2022-01-16] MEDS ORDERED: PANT40TA2 PO ×2 (13:30)
== END 2022-01-12 11:01 | disposition home or self-care (01) ==
LOC: PREOP 05:43
PROVIDERS: ATTEND Surgery
DX: Z01.818 Encounter for other preprocedural examination (principal)

== ENCOUNTER 2022-01-15 19:59 | Observation (INO) | payer MEDICARE, MEDICAID ==
[~2022-01-15] VITALS: Ht 178 cm; Wt 102.0 kg
[~2022-01-15 19:59] MED LIST changes: +ASPI-1238 PO; +ATOR20TA66 PO; +FAMO20TA3 PO; +METO50TA15 PO
[2022-01-15] MEDS ORDERED: HYOSCYAMINE 0.125 MG (LEVSIN) TAB SL ONE (20:15)
--- NOTE | 2022-01-15 20:29 | ED GI ---
General Chief Complaint: Oral/Throat Problems Stated Complaint: CHICKEN STUCK IN THROAT Nursing Triage Note: PT AMBULATORY INTO ER WITH COMPLAINT OF CHOKING. PT STATES THAT HE WAS EATING CHICKEN FOR DINNER AND FEELS LIKE THERE IS A SMALL PIECE IN HIS THROAT. PT HAS HISTORY OF CHOKING BEFORE. PT IS ABLE TO SPEAK AND HAS GOOD AIR MOVEMENT. PT STATES THAT HE THINKS SOME OF IT HAS GONE DOWN. PT HASN'T TRIED DRINKING ANYTHING TO GET IT DOWN, BUT HAS FORCED SELF TO VOMIT. (TETO PATIÑO) History of Present Illness Date Seen by Provider: January 15, 2022 Time Seen by Provider: 20:10 Initial Comments 71 year old male presents after eating chicken for dinner and feeling food is stuck. He has experienced this in the past, surgery approximately 7-[address] Amaya with dilation of esophagus. Hx of Cameron's Esophagitis and GERD. Last episode approximately 2018 in this ED and passed on it's own. EGD and colonoscopy scheduled for 01/24/[address] Blanchard. He does not take any anticoagulatns and has not been taking his b/p medicine twice a day, only in the am. PCP is Dr. Estrada. Timing/Duration: 1-3 Hours Severity/Quality: Moderate Location: Epigastric Radiation: No Radiation Associated Symptoms: Denies Symptoms (TETO PATIÑO) Allergies and Home Medications Allergies Coded Allergies: No Known Drug Allergies (Unverified , 03/11/11) Patient Home Medication List Home Medication List Reviewed: Yes (TETO PATIÑO) Aspirin (Aspirin EC) 81 Mg Tablet., 81 MG PO DAILY, (Reported) Entered as Reported by: EMILY TIRADO on 01/12/22 1020 Atorvastatin Calcium (Atorvastatin Calcium) 20 Mg Tablet, 20 MG PO DAILY, (Reported) Entered as Reported by: EMILY TIRADO on 01/12/22 1020 Famotidine (Acid Bias Cutter (FAMOTIDINE)) 20 Mg Tablet, 20 MG PO PRN, (Reported) Entered as Reported by: EMILY TIRADO on 01/12/22 1020 Metoprolol Tartrate (Metoprolol Tartrate) 50 Mg Tablet, 50 MG PO BID, (Reported) Entered as Reported by: EMILY TIRADO on 01/12/22 1020 Discontinued Medications Hydrocodone/Acetaminophen ([place] 7.5-325 Tablet) 1 Each Tablet, 1 EACH PO every 4 hours Discontinued Reason: No Longer Taking Prescribed by: NAEEM MIN on 08/16/17 1213 Review of Systems Review of Systems Constitutional: no symptoms reported, see HPI Gastrointestinal: See HPI; Denies Nausea; Vomiting, Other (Inability to pass f ood or water, feels like "bubble of air" is in throat) (TETO PATIÑO) All Other Systems Reviewed Negative Unless Noted: Yes (TETO PATIÑO) Past Kkeqsth-Fgctbn-Iwsheu Hx Patient Social History Tobacco Use?: No Use of E-Cig and/or Vaping dev: No Substance use?: No Alcohol Use?: No Pt feels they are or have been: No (TETO PATIÑO) Immunizations Up To Date Tetanus Booster (TDap): Unknown Influenza Vaccine Up-to-Date: Yes; Up-to-Date First/Initial COVID19 Vaccinat: NOVEMBER 2020 Second COVID19 Vaccination Romeo: DECEMBER 2020 Third COVID19 Vaccination Date: NO COVID19 Vaccine Internet Network Specialist: SOFIA (TETO PATIÑO) Seasonal Allergies Seasonal Allergies: No (TETO PATIÑO) Past Medical History Surgeries: Yes (HX BROKEN NECK, ARM, LEG, ESOPHAGEAL STRETCHING) Orthopedic Respiratory: No Cardiac: Yes Hypertension Neurological: No Reproductive Disorders: No Sexually Transmitted Disease: No Genitourinary: No Gastrointestinal: Yes Gastroesophageal Reflux Musculoskeletal: No Endocrine: No Hearing Impairment: Denies Cancer: No Psychosocial: No Integumentary: No Blood Disorders: No (TETO PATIÑO) Family Medical History Reviewed and Corrections made (TETO PATIÑO) Diabetes, Other Conditions/Hx (TETO PATIÑO) Physical Exam Vital Signs Vital Signs - First Documented 01/15/22 20:10 Temp 36.4 Pulse 90 Resp 20 B/P (MAP) 167/95 (119) Pulse Ox 98 O2 Delivery Room Air (NATASHA RAMOS MD) Vital Signs Capillary Refill : Less Than 3 Seconds (TETO PATIÑO) Height/Weight/BMI Height: 5'10.00" Weight: 220lbs. 0oz. 99.122913se; 31.00 BMI Method:Stated General Appearance: WD/WN, no apparent distress Respiratory: chest non-tender, lungs clear, normal breath sounds Cardiovascular: normal peripheral pulses, regular rate, rhythm Gastrointestinal: normal bowel sounds, non tender, soft Neurologic/Psychiatric: no motor/sensory deficits, alert, normal mood/affect, oriented x 3 Skin: normal color, warm/dry (TETO PATIÑO) Progress/Results/Core Measures Results/Orders Medications Given in ED Current Medications Medications Dose Ordered Sig/Ki Route Start Time Stop Time Status Last Admin Dose Admin Al Hydrox/Mg Hydrox/Simethicone 30 ml ONCE ONCE PO 01/15/22 21:00 01/15/22 21:01 DC 01/15/22 21:00 30 ML Hyoscyamine Sulfate 0.125 mg ONCE ONCE SL 01/15/22 20:15 01/15/22 20:16 DC 01/15/22 20:16 0.125 MG Lidocaine HCl 15 ml ONCE ONCE PO 01/15/22 21:00 01/15/22 21:01 DC 01/15/22 21:00 15 ML (NATASHA RAMOS MD) Vital Signs/I&O 01/15/22 20:10 Temp 36.4 Pulse 90 Resp 20 B/P (MAP) 167/95 (119) Pulse Ox 98 O2 Delivery Room Air (NATASHA RAMOS MD) Blood Pressure Mean: 119 Progress Progress Note : Time: 20:10 Progress Note Patient seen and evaluated, will try Levsin sublingual and continue to monitor. 2029 patient continues to have inability to swallow even sips of water and is requiring spitting with saliva. When he attempts to drink, there is gurgling, then he vomits. Small pieces of chicken in emesis. 2049 tried GI cocktail, patient feels like a small amount was swallowed, but vomiting majority. Patient ambulated to bathroom, small emesis with chicken produced. Continues to have inability to swallow water or saliva. [address] Marcano, recommends admission. IV glucagon, PPI, and Ativan now. Aspiration precautions. Will discuss with Dr. Blanchard tomorrow, if continues will plan EGD. 2139 small sips of water, some were tolerated, patient felt like he swallowed them, and other times he vomited. Transferred to 4th floor, stable. (TETO PATIÑO) Diagnostic Imaging Diagonstic Imaging: Xray Plain Films/CT/US/NM/MRI: chest Comments NAME: ERICKSON BROWN [facility] REC#: [id number] PT STATUS: REG ER : 1950 PHYSICIAN: TETO PATIÑO ADMIT DATE: 01/15/22/ER Signed Date of Exam:01/15/22 CHEST 1 VIEW, AP/PA ONLY EXAMINATION: Chest 1 view. HISTORY: Feels like there is a food bolus in the throat. COMPARISON: 08/16/2017. FINDINGS: The cardiac silhouette is prominent with prominence of the central pulmonary vasculature. Bibasilar atelectasis is seen. No large pleural effusion or pneumothorax. No radiopaque foreign bodies are seen along the course of the aerodigestive tract. IMPRESSION: 1. No radiopaque foreign bodies along the course of the aerodigestive tract. 2. Cardiomegaly with central pulmonary vascular congestion. No overt pulmonary edema. may be chronic. Dictated by: Dictated on workstation # [id number] Dict: 01/15/222046 Trans: 01/15/222055 [facility] [id number] Interpreted by: TERESA ESPINOZA DO Reviewed: Reviewed by Me (TETO PATIÑO) Departure Impression Primary Impression: Bolus impaction of digestive tract Disposition: ADMITTED INPATIENT Condition: Stable Admissions Decision to Admit/Date: January 15, 2022 Time/Decision to Admit Time: 20:50 (TETO PATIÑO) Departure-Patient Inst. Referrals: NO,LOCAL PHYSICIAN (PCP/Family) Primary Care Physician ATTENDING PHYSICIAN NOTE: I was physically present as attending physician in the emergency department during the care of this patient, but I was not directly involved in the decision making or delivery of care for this patient. (NATASHA RAMOS MD) Copy Copies To 1: CHRIS BLANCHARD DO Copies To 2: SAMIR ESTRADA MD, AMY ARNP January 15, 2022 20:29 NATASHA RAMOS MD January 16, 2022 04:34
--- NOTE | 2022-01-15 20:56 | Diagnostic Imaging Report ---
EXAMINATION: Chest 1 view. HISTORY: Feels like there is a food bolus in the throat. COMPARISON: 08/16/2017. FINDINGS: The cardiac silhouette is prominent with prominence of the central pulmonary vasculature. Bibasilar atelectasis is seen. No large pleural effusion or pneumothorax. No radiopaque foreign bodies are seen along the course of the aerodigestive tract. IMPRESSION: 1. No radiopaque foreign bodies along the course of the aerodigestive tract. 2. Cardiomegaly with central pulmonary vascular congestion. No overt pulmonary edema. may be chronic. Dictated by: Dictated on workstation # [id number]
[2022-01-15] MEDS ORDERED: LIDOCAINE 2% VISCOUS 15 ML UDC PO ONE (21:00)
[2022-01-15] MEDS ORDERED: ANTACID SUSP 30 ML UDC (MYLANTA) PO ONE (21:00)
[2022-01-15] MEDS ORDERED: PANTOPRAZOLE 40 MG (PROTONIX) VIAL IV STA (21:05)
[2022-01-15] MEDS ORDERED: GLUCAGON EMERGENCY 1 MG/KIT IV STA (21:05)
[2022-01-15] MEDS ORDERED: LORazepam INJ 2 MG/ML (ATIVAN) VIAL IVP STA (21:13)
[2022-01-15] MEDS ORDERED: NS IV 1000 ML 1,000 ML IV SCH (21:15)
[2022-01-15 21:20] LABS: BASOPHILS # (AUTO) 0.1 10^3/uL (0.0-0.1); BASOPHILS % (AUTO) 1 % (0-10); EOSINOPHILS # (AUTO) 0.3 10^3/uL (0.0-0.3); EOSINOPHILS % (AUTO) 3 % (0-10); HEMATOCRIT 47 % (40-54); HEMOGLOBIN 16.3 g/dL (13.3-17.7); LYMPHOCYTES # (AUTO) 3.5 10^3/uL (1.0-4.0); LYMPHOCYTES % (AUTO) 35 % (12-44); MEAN CORPUSCULAR HEMOGLOBIN 33 pg (25-34); MEAN CORPUSCULAR HGB CONC 35 g/dL (32-36); MEAN CORPUSCULAR VOLUME 94 fL (80-99); MEAN PLATELET VOLUME 10.3 fL (9.0-12.2); MONOCYTES # (AUTO) 0.8 10^3/uL (0.0-1.0); MONOCYTES % (AUTO) 8 % (0-12); NEUTROPHILS # (AUTO) 5.4 10^3/uL (1.8-7.8); NEUTROPHILS % (AUTO) 53 % (42-75); PLATELET COUNT 217 10^3/uL (130-400); WHITE BLOOD COUNT 10.2 10^3/uL (4.3-11.0)
[2022-01-15 21:42] LABS: ALBUMIN 4.3 GM/DL (3.2-4.5); BILIRUBIN,TOTAL 0.6 MG/DL (0.1-1.0); CREATININE SERUM 1.08 MG/DL (0.60-1.30); POTASSIUM 4.3 MMOL/L (3.6-5.0); TOTAL PROTEIN 7.2 GM/DL (6.4-8.2)
[2022-01-15] MEDS ORDERED: LORazepam INJ 2 MG/ML (ATIVAN) VIAL IV PRN (23:00)
[2022-01-15] MEDS ORDERED: GLUCAGON EMERGENCY 1 MG/KIT IM PRN (23:00)
[2022-01-15] MEDS ORDERED: ONDANSETRON 4 MG/2 ML (SDV) Z0FRAN IV PRN (23:00)
[2022-01-15] MEDS: NS IV 1000 ML 1,000 ML IV SCH (23:18)
[2022-01-16 00:14] VITALS: BP 168/87
[2022-01-16 04:02] VITALS: BP 162/83
[2022-01-16] MEDS: LORazepam INJ 2 MG/ML (ATIVAN) VIAL IV SCH ×2 (04:13→09:59)
[2022-01-16] MEDS: NS IV 1000 ML 1,000 ML IV SCH ×2 (04:17→12:06)
[2022-01-16] MEDS ORDERED: GLUCAGON EMERGENCY 1 MG/KIT IM SCH (06:00)
[2022-01-16] MEDS ORDERED: GLUCAGON EMERGENCY 1 MG/KIT IV SCH (06:00)
[2022-01-16 08:01] VITALS: BP 162/75
[2022-01-16] MEDS ORDERED: PANTOPRAZOLE 40 MG (PROTONIX) VIAL IV SCH (09:00)
[2022-01-16 12:01] VITALS: BP 158/72
--- NOTE | 2022-01-16 13:27 | Consultation - Surgery ---
History of Present Illness History of Present Illness Patient Consulted On(geena/time) 01/16/22 13:22 Date Seen by Provider: January 16, 2022 Time Seen by Provider: 13:22 History of Present Illness CC food bolus esophagus. Roxy 71 year old male with dysphagia. Had food get stuck last night and wouldn't go down, chicken. Patient discomfort in the lower esophagus area. Nothing was making better and nothing makes worse, just happens. Patient felt it go down today. He is able to swallow secretions. He has endoscopy planned next week. No other complaints at this time. Allergies and Home Medications Allergies Coded Allergies: No Known Drug Allergies (Unverified , 03/11/11) Patient Home Medication List Home Medication List Reviewed: Yes Aspirin (Aspirin EC) 81 Mg Tablet.dr, 81 MG PO DAILY, (Reported) Entered as Reported by: EMILY TIRADO on 01/12/22 1020 Atorvastatin Calcium (Atorvastatin Calcium) 20 Mg Tablet, 20 MG PO DAILY, (Reported) Entered as Reported by: EMILY TIRADO on 01/12/22 1020 Famotidine (Acid Crystallography Teacher (FAMOTIDINE)) 20 Mg Tablet, 20 MG PO PRN, (Reported) Entered as Reported by: EMILY TIRADO on 01/12/22 1020 Metoprolol Tartrate (Metoprolol Tartrate) 50 Mg Tablet, 50 MG PO BID, (Reported) Entered as Reported by: EMILY TIRADO on 01/12/22 1020 Discontinued Medications Hydrocodone/Acetaminophen ([place] 7.5-325 Tablet) 1 Each Tablet, 1 EACH PO every 4 hours Discontinued Reason: No Longer Taking Prescribed by: NAEEM MIN on 08/16/17 1213 Past Nbgyuqf-Ksiaxk-Bemith Hx Patient Social History Smoking Status: Former Smoker Former Smoker, Quit: Jan 12, 2002 2nd Hand Smoke Exposure: No Recent Hopitalizations: No Alcohol Use?: No Have you traveled recently?: No Immunizations Up To Date Tetanus Booster (TDap): Unknown Seasonal Allergies Seasonal Allergies: No Surgeries History of Surgeries: Yes (HX BROKEN NECK, ARM, LEG, ESOPHAGEAL STRETCHING) Surgeries: Orthopedic Respiratory History of Respiratory Disorde: No Cardiovascular History of Cardiac Disorders: Yes Cardiac Disorders: Hypertension Neurological History of Neurological Disord: No Reproductive System Hx Reproductive Disorders: No Sexually Transmitted Disease: No Genitourinary History of Genitourinary Disor: No Gastrointestinal History of Gastrointestinal Di: Yes Gastrointestinal Disorders: Gastroesophageal Reflux Musculoskeletal History of Musculoskeletal Dis: No Endocrine History of Endocrine Disorders: No HEENT Hearing Impairment: Denies Cancer History of Cancer: No Psychosocial History of Psychiatric Problem: No Integumentary History of Skin or Integumenta: No Blood Transfusions History of Blood Disorders: No Reviewed Nursing Assessment Reviewed/Agree w Nursing PMH: Yes Family Medical History Significant Family History: Diabetes, Other Conditions/Hx Review of Systems-General Constitutional: No chills, No diaphoresis EENTM: No blurred vision, No double vision Respiratory: No cough, No dyspnea on exertion Cardiovascular: No chest pain Gastrointestinal: dysphagia, heartburn Genitourinary: No decreased output, No discharge Musculoskeletal: No gout, No joint pain Skin: No change in color, No change in hair/nails Psychiatric/Neurological: Denies Anxiety, Denies Depressed, Denies Emotional Problems All Other Systems Reviewed Negative Unless Noted: Yes (Negative excepted noted.) Physical Exam-General Problems Physical Exam Vital Signs Vital Signs - First Documented 01/15/22 20:10 Temp 36.4 Pulse 90 Resp 20 B/P (MAP) 167/95 (119) Pulse Ox 98 O2 Delivery Room Air Capillary Refill : Less Than 3 Seconds General Appearance: WD/WN, no apparent distress HEENT: PERRL/EOMI, normal ENT inspection Neck: non-tender, supple Respiratory: chest non-tender, no respiratory distress, no accessory muscle use Cardiovascular: regular rate, rhythm, no JVD Gastrointestinal: non tender, soft, no organomegaly Back: normal inspection, no CVA tenderness Extremities: normal range of motion, non-tender Neurologic/Psychiatric: alert, normal mood/affect, oriented x 3 Skin: normal color, warm/dry Lymphatic: no adenopathy Data Review Labs Laboratory Tests 01/15/22 21:14: White Blood Count 10.2, Red Blood Count 5.00, Hemoglobin 16.3, Hematocrit 47, Mean Corpuscular Volume 94, Mean Corpuscular Hemoglobin 33, Mean Corpuscular Hemoglobin Concent 35, Red Cell Distribution Width 12.4, Platelet Count 217, Me an Platelet Volume 10.3, Immature Granulocyte % (Auto) 0, Neutrophils (%) (Auto) 53, Lymphocytes (%) (Auto) 35, Monocytes (%) (Auto) 8, Eosinophils (%) (Auto) 3, Basophils (%) (Auto) 1, Neutrophils # (Auto) 5.4, Lymphocytes # (Auto) 3.5, Monocytes # (Auto) 0.8, Eosinophils # (Auto) 0.3, Basophils # (Auto) 0.1, Immature Granulocyte # (Auto) 0.0, Sodium Level 144, Potassium Level 4.3, Chloride Level 106, Carbon Dioxide Level 26, Anion Gap 12, Blood Urea Nitrogen 14, Creatinine 1.08, Estimat Glomerular Filtration Rate 72, BUN/Creatinine Ratio 13, Glucose Level 101, Calcium Level 10.0, Corrected Calcium 9.8, Total Bilirubin 0.6, Aspartate Amino Transf (AST/SGOT) 23, Alanine Aminotransferase (ALT/SGPT) 19, Alkaline Phosphatase 53, Total Protein 7.2, Albumin 4.3 Assessment/Plan Assessment/Plan Assessment/Plan dypshagia with food bolus esophageal obstruction patient with food bolus admitted for observation. food bolus has gone down. will see if tolerates liquids if does will plan dc home and keep planned endoscopy CHRIS BLANCHARD DO January 16, 2022 13:27
[2022-01-16] MEDS ORDERED: PANT40TA2 PO ×2 (13:30)
--- NOTE | 2022-01-16 13:31 | Discharge Inst-Simple/Standard ---
Discharge Inst-Standard Discharge Medications New, Converted or Re-Newed RX: Transmitted to Pharmacy Patient Instructions/Follow Up Plan of Care/Instructions/FU: Keep planned endoscopy and instructions. Activity as Tolerated: Yes Discharge Diet: Soft Diet CHRIS BLANCHARD DO January 16, 2022 13:31
== END 2022-01-16 13:59 | disposition home or self-care (01) ==
LOC: EDUNIT# 19:59 → ER 20:00 → 4TH 21:00
PROVIDERS: ADMIT Surgery; ATTEND Surgery
DX: T18.128A Food in esophagus causing other injury, initial encounter (principal); Z87.891 Personal history of nicotine dependence
CPT/HCPCS: 36415; 71045; 80053; 85025; 96360; 96361; 96374; 96375; 96376; G0378

== ENCOUNTER 2022-01-31 12:30 | Day surgery (SDC) | payer MEDICARE, MEDICAID ==
[~2022-01-31] VITALS: Ht 177.8 cm; Wt 102.0 kg
[~2022-01-31 12:30] MED LIST changes: +PANT40TA2 PO
[2022-01-31] MEDS ORDERED: LACTATED RINGERS 1,000 ML IV STA (12:47)
[2022-01-31] MEDS ORDERED: LACTATED RINGERS 1,000 ML IV ONE (12:57)
[2022-01-31] MEDS ORDERED: HURRICAINE EXT TUBE (BENZOCAINE) XX PRN (13:00)
--- NOTE | 2022-01-31 13:15 | Progress Note-Pre Operative ---
Pre-Operative Progress Note H&P Reviewed The H&P was reviewed, patient examined and no changes noted. Date Seen by Provider: January 31, 2022 Time Seen by Provider: 13:14 Date H&P Reviewed: January 31, 2022 Time H&P Reviewed: 13:14 Pre-Operative Diagnosis: chronic gastritis, dysphagia, hx polyps CHRIS BLANCHARD DO January 31, 2022 13:14
[2022-01-31 13:23] VITALS: BP 147/86
[2022-01-31] MEDS ORDERED: PROPOFOL INJECTION 50 ML IV ONE (14:09)
--- NOTE | 2022-01-31 14:40 | Discharge Inst-Simple/Standard ---
Discharge Inst-Standard Patient Instructions/Follow Up Plan of Care/Instructions/FU: 2 weeks [place] Activity as Tolerated: Yes Discharge Diet: Liquid Diet (3 days then slowly advance, to soft diet for 1 week then as tolerates.) CHRIS BLANCHARD DO January 31, 2022 14:40
[2022-01-31 14:42] VITALS: BP 159/80
--- NOTE | 2022-01-31 14:45 | Anesthesia-General Post-Op ---
MAC Patient Condition Mental Status/LOC: Same as Preop Cardiovascular: Satisfactory Nausea/Vomiting: Absent Respiratory: Satisfactory Pain: Controlled Complications: Absent Post Op Complications Complications None Follow Up Care/Instructions Patient Instructions None needed. Anesthesiology Discharge Order Discharge Order Patient is doing well, no complaints, stable vital signs, no apparent adverse anesthesia problems. KADY QUIROZ DO January 31, 2022 14:45
[2022-01-31 15:25] VITALS: BP 142/75
--- NOTE | 2022-01-31 19:02 | OPERATIVE REPORT ---
DATE OF SERVICE: 01/31/2022 PREOPERATIVE DIAGNOSES: Dysphagia, gastroesophageal reflux disease, screening colonoscopy. POSTOPERATIVE DIAGNOSES: Linear tear of the upper esophagus with stricture, diverticulosis and colon polyps. PROCEDURE: Esophagoscopy, colonoscopy with cold biopsy polypectomy x2 and hot biopsy polypectomy x3. SURGEON: Chris Weir DO ANESTHESIA: Per MDA. ESTIMATED BLOOD LOSS: None. COMPLICATIONS: None. INDICATIONS: The patient is a 71-year-old male who has been having some dysphagia symptoms and also needing colonoscopy. He understands risks and benefits of procedures and wishes to proceed. Consent was signed in the chart. DESCRIPTION OF PROCEDURE: The patient was taken to the endoscopy suite, placed in left lateral recumbent position. Timeout was performed. Scope was inserted in mouth and with swallows, scope was drawn down into the esophagus proximally, which came to about 4 cm. Scope was slowly retracted back; there was linear tear with some scant bleeding. Scope was then slowly retracted back due to location of the linear tear and no further upper endoscopy performed. A digital rectal exam was performed. There were no palpable polyps, masses or ulcerations. Scope was inserted in the rectum and advanced all the way to cecum with minimal difficulty. Prep was adequate with irrigation and suction. Scope was slowly retracted back. No polyps, masses or ulcerations in the cecum. In the ascending colon, there were 2 small polyps, which cold biopsy polypectomy was performed. Scope was then continuously retracted back into the transverse colon, which another polyp was present, which hot biopsy polypectomy was performed. Scope was then continuously slowly retracted back. No polyps, masses or ulcerations in the descending colon and sigmoid colon, a minimal amount of diverticulosis present. There are also two polyps, which hot biopsy polypectomy was performed. Scope was then continuously retracted back until the rectum, where it was also retroflexed noting no other pathology. Scope was returned to its normal position, slowly withdrawn until completely removed. The patient tolerated the procedure well without any complications. He was taken to recovery room in stable condition. RECOMMENDATIONS: The patient will need repeat colonoscopy on as needed basis. In terms of the upper GI, the patient will need an esophagram to further evaluate. He will stay on liquid diet for 3 days and then advance to a soft diet. If he is not having any issues for a week, then diet as tolerated. The patient will follow up in the office in 2 weeks. Job ID: [id number] DocumentID: [id number] Dictated Date: 01/31/2022 14:46:09 Advertising Dispatch Clerk Date: 01/31/2022 19:01:48 Dictated By: CHRIS WEIR DO
== END 2022-01-31 15:40 | disposition home or self-care (01) ==
LOC: ENDO 12:30
PROVIDERS: ATTEND Surgery
DX: Z12.11 Encounter for screening for malignant neoplasm of colon (principal); D12.2 Benign neoplasm of ascending colon; D12.3 Benign neoplasm of transverse colon; D12.5 Benign neoplasm of sigmoid colon; K21.9 Gastro-esophageal reflux disease without esophagitis; T18.128A Food in esophagus causing other injury, initial encounter; K22.2 Esophageal obstruction; K22.89 Other specified disease of esophagus; K57.30 Diverticulosis of large intestine without perforation or abscess without bleeding; Z87.891 Personal history of nicotine dependence
CPT/HCPCS: 88305

== ENCOUNTER → 2022-02-15 | Outpatient (CLI) | payer MEDICARE, MEDICAID ==
[~2022-02-15] MED LIST changes: +BARIUM for suspension 96% w/w (Vanilla Silq Medium Density) PO ONE; +BARIUM for suspension 98% w/w (Vanilla Silq High Density) PO ONE
--- NOTE | 2022-02-15 10:05 | Diagnostic Imaging Report ---
INDICATION: Difficulty swallowing with foods getting stuck in the throat. Patient ingested thin and thick barium and imaging of esophagus was performed in multiple obliquities. Total of 1 minute of fluoroscopic time was utilized. Correlation is made with prior esophagram from 12/08/2014. Preliminary radiograph over the chest is unremarkable. There are postop changes in the cervical spine. The area of the mucosal irregularity in the upper esophagus noted on prior study is less prominent on today's study. There continues to be some mild mucosal irregularity and luminal narrowing at this location however. There are occasional tertiary contractions present. No mass or stricture is seen. There is a moderate-sized sliding-type hiatal hernia. There is also gastroesophageal reflux demonstrated. IMPRESSION: 1. The area of luminal narrowing in the upper to mid thoracic esophagus persists but the degree of mucosal irregularity has improved since prior esophagram from November 2014. A moderate-sized sliding-type hiatal hernia persists as well as moderate gastroesophageal reflux. Dictated by: Dictated on workstation # [id number]
== END ==
LOC: RAD 09:00
PROVIDERS: ATTEND Surgery
DX: K22.2 Esophageal obstruction (principal); K44.9 Diaphragmatic hernia without obstruction or gangrene; K21.9 Gastro-esophageal reflux disease without esophagitis
CPT/HCPCS: 74220